=== PATIENT | female | born 1985 | race Caucasian/White ===

== ENCOUNTER 2019-01-21 19:18 | Emergency (ER) | payer OTHER ==
[~2019-01-21] VITALS: Ht 167.6 cm; Wt 76.7 kg
[2019-01-21 19:38] VITALS: BP 159/107
--- NOTE | 2019-01-21 19:40 | NUR ---
TO LOBBY A/W BED, CHRISTIANO PATEL NOTED
--- NOTE | 2019-01-21 21:09 | NUR ---
PT AMBULATED TO ED 09 WITH
--- NOTE | 2019-01-21 21:20 | NUR ---
33/F CO MOUTH PAIN X2 WEEKS. HX LUPUS, STROKE. DIALYSIS. RX LACTRIMAL, PREDNISONE, NORVASC, CALCIUM. AOX4. ABLE TO VERBALIZE NEEDS. LUNG SOUNDS CLEAR. EVEN UNLABORED BREATHING. DENIES NVD.
--- NOTE | 2019-01-21 22:16 | NUR ---
Dr. Loya evaluating patient at bedside.
[2019-01-21] MEDS ORDERED: MORPHINE SULFATE 4 MG/ML SYR IM ONE (22:20)
[2019-01-21] MEDS ORDERED: MORPHINE SULFATE 4 MG/ML SYR ONE (22:39)
--- NOTE | 2019-01-21 22:45 | NUR ---
Patient discharged with v/s stable. Written and verbal after care instructions given and explained. Patient alert, oriented and verbalized understanding of instructions. Ambulatory with steady gait. All questions addressed prior to discharge. ID band removed. Patient advised to follow up with PMD. Rx of PENICILLIN, NORCO 5MG-20MG given. Patient educated on indication of medication including possible reaction and side effects. Opportunity to ask questions provided and answered.
[2019-01-21 22:46] VITALS: BP 159/107
== END 2019-01-21 22:45 | disposition home or self-care (01) ==
LOC: MED 19:18
DX: K04.7 Periapical abscess without sinus (principal); I10 Essential (primary) hypertension; N28.9 Disorder of kidney and ureter, unspecified; Z86.73 Personal history of transient ischemic attack (TIA), and cerebral infarction without residual deficits
CPT/HCPCS: 96372; 99283; J2270